=== PATIENT | female | born 1955 | race Native Hawaiian/Other Pacific Islander ===

== ENCOUNTER 2019-07-06 14:26 | Outpatient (CLI) | payer BC | END 2019-07-06 23:07 | disposition home or self-care (01) | LOC: LAB 14:26 | DX: N30.90 Cystitis, unspecified without hematuria (principal) | CPT/HCPCS: 87077; 87086; 87088; 87186 ==

== ENCOUNTER 2023-02-23 10:06 | Outpatient (CLI) | payer BC ==
[2023-02-23 10:43] LABS: PLATELET COUNT 232 K/uL (152-353)
[2023-02-23 11:06] LABS: POTASSIUM 3.7 mmol/L (3.6-5.2)
== END 2023-02-23 18:58 | disposition home or self-care (01) ==
LOC: LABW 10:06
PROVIDERS: ATTEND Internal Medicine
DX: T73.3XXA Exhaustion due to excessive exertion, initial encounter (principal)
CPT/HCPCS: 36415; 80053; 83735; 84439; 84443; 85027; 85652; 86038